=== PATIENT | female | born 1980 | race Asian ===

== ENCOUNTER 2016-06-19 11:37 | Outpatient (CLI) | payer OTHER ==
[2016-06-19 11:54] VITALS: BP 89/54
[2016-06-19 12:42] VITALS: BP 86/54
[2016-06-19 13:25] LABS: ADD MIUA? NO; BILIRUBIN NEGATIVE; BLOOD NEGATIVE; COLOR YELLOW ((YELLOW)); GLUCOSE (STRIP) NEGATIVE; KETONES NEGATIVE; LEUKOCYTES NEGATIVE; NITRITE NEGATIVE; PROTEIN (STRIP) NEGATIVE; SPECIFIC GRAVITY 1.006 (1.000-1.030); UCUL ADDED? NO; UROBILINOGEN 0.2 MG/DL (0.2-1.0)
== END 2016-06-19 14:23 | disposition home or self-care (01) ==
LOC: LDRP-OP → 2WEST 11:38 → LDRP-OP 10-14 17:03
PROVIDERS: Advanced Practice Midwife
DX: O36.8120 Decreased fetal movements, second trimester, not applicable or unspecified (principal); Z3A.27 27 weeks gestation of pregnancy
CPT/HCPCS: 59025; 81003; G0378

== ENCOUNTER 2016-08-26 07:41 | Inpatient (IN) | payer OTHER ==
[2016-08-26] VITALS (7 sets, daily range): BP systolic 103–114; BP diastolic 55–76
[~2016-08-26] VITALS: Ht 157.5 cm; Wt 63.5 kg
[2016-08-26 10:39] LABS: EOSINOPHIL (%) 0.3 % (0-5); HEMATOCRIT 32.5 % (36.0-46.0); IMMATURE GRANULOCYTE (%) 0.5 % (0.0-0.7); IMMATURE GRANULOCYTE COUNT 0.1 K/uL; INSTRUMENT ABS NEUTROPHIL CT 7.5 K/uL; LYMPHOCYTE COUNT 3.1 K/uL (1.0-2.8); MCV 88.8 FL (83-99); MEAN PLAT.VOLUME 10.3 uM^3 (9.5-12.4); MONOCYTE (%) 4.4 % (3-12); MONOCYTE COUNT 0.5 K/uL (0-0.8); NEUTROPHIL (%) 66.9 % (45-76); NEUTROPHIL COUNT 7.5 K/uL (1.8-6.4); PLATELET COUNT 274 K/uL (156-360); RBC DIS.WIDTH-CV 12.9 % (11.8-14.6); RBC DIS.WIDTH-SD 41.1 % (39-53); RED BLOOD COUNT 3.66 M/uL (3.80-5.20); WHITE BLOOD COUNT 11.2 K/uL (4.1-10.2)
[2016-08-26 18:01] LABS: EOSINOPHIL (%) 0 % (0-5); HEMATOCRIT 30.2 % (36.0-46.0); IMMATURE GRANULOCYTE (%) 0.6 % (0.0-0.7); IMMATURE GRANULOCYTE COUNT 0.1 K/uL; INSTRUMENT ABS NEUTROPHIL CT 18.7 K/uL; LYMPHOCYTE COUNT 1.3 K/uL (1.0-2.8); MCH 32.6 PG (29.0-34.0); MCHC 36.8 G/DL (30.0-36.0); MCV 88.6 FL (83-99); MEAN PLAT.VOLUME 10.2 uM^3 (9.5-12.4); MONOCYTE (%) 1.6 % (3-12); MONOCYTE COUNT 0.3 K/uL (0-0.8); NEUTROPHIL (%) 91.4 % (45-76); NEUTROPHIL COUNT 18.7 K/uL (1.8-6.4); PLATELET COUNT 255 K/uL (156-360); RBC DIS.WIDTH-SD 41.3 % (39-53); RED BLOOD COUNT 3.41 M/uL (3.80-5.20); WHITE BLOOD COUNT 20.5 K/uL (4.1-10.2)
[2016-08-27 03:01] VITALS: BP 101/63
[2016-08-27 07:40] LABS: EOSINOPHIL (%) 0.1 % (0-5); IMMATURE GRANULOCYTE (%) 0.4 % (0.0-0.7); IMMATURE GRANULOCYTE COUNT 0.1 K/uL; INSTRUMENT ABS NEUTROPHIL CT 12.9 K/uL; LYMPHOCYTE COUNT 4.1 K/uL (1.0-2.8); MCHC 36.8 G/DL (30.0-36.0); MCV 89.6 FL (83-99); MEAN PLAT.VOLUME 10.6 uM^3 (9.5-12.4); MONOCYTE (%) 5.4 % (3-12); NEUTROPHIL (%) 71.4 % (45-76); NEUTROPHIL COUNT 12.9 K/uL (1.8-6.4); PLATELET COUNT 254 K/uL (156-360); RBC DIS.WIDTH-CV 13.2 % (11.8-14.6); RBC DIS.WIDTH-SD 42.8 % (39-53); RED BLOOD COUNT 2.79 M/uL (3.80-5.20); WHITE BLOOD COUNT 18.1 K/uL (4.1-10.2)
[2016-08-27 07:52] VITALS: BP 86/54
[2016-08-27 11:13] VITALS: BP 97/58
[2016-08-27 14:54] VITALS: BP 102/57
[2016-08-27 19:00] VITALS: BP 99/60
[2016-08-27 23:00] VITALS: BP 95/54
[2016-08-28 03:18] VITALS: BP 99/62
[2016-08-28 07:10] VITALS: BP 102/59
[2016-08-28] MEDS ORDERED: BENADRYL25 MG PO (11:03)
[2016-08-28] MEDS ORDERED: LORATADINE10 M2 PO (11:04)
[2016-08-28] MEDS ORDERED: ENDOCET 5-3251 EACH PO (11:05)
[2016-08-28] MEDS ORDERED: CHROMAGEN,1 CAPSULE PO (11:05)
[2016-08-28] MEDS ORDERED: IBUPROFEN800 MG PO (11:05)
[2016-08-28] MEDS ORDERED: BREAST PUMP MC (11:13)
[2016-08-28 11:15] VITALS: BP 101/62
[2016-08-28 14:33] VITALS: BP 104/63
== END 2016-08-28 18:19 | disposition home or self-care (01) | DRG 765 ==
LOC: 2SOUTH → 2WEST 07:41 → 2SOUTH 11:47 → 2WEST 08-28 18:19
PROVIDERS: Obstetrics & Gynecology
PROC: 10D00Z1 Extraction of Products of Conception, Low, Open Approach (ICD-10-PCS; principal; 2016-08-26)
DX: O44.03 Complete placenta previa NOS or without hemorrhage, third trimester (principal); O44.43 Low lying placenta NOS or without hemorrhage, third trimester; O32.8XX0 Maternal care for other malpresentation of fetus, not applicable or unspecified; O32.2XX0 Maternal care for transverse and oblique lie, not applicable or unspecified; O99.02 Anemia complicating childbirth; D62 Acute posthemorrhagic anemia; Z3A.37 37 weeks gestation of pregnancy; Z37.0 Single live birth; O26.893 Other specified pregnancy related conditions, third trimester; R20.0 Anesthesia of skin
CPT/HCPCS: 36415; 80053; 82607; 84443; 85025; 85025 91; 86900; 86901; 88307; J0131; J0690; J1100; J2405; J2765; J7120

== ENCOUNTER 2016-10-01 17:54 | Emergency (ER) | payer OTHER ==
[~2016-10-01] VITALS: Ht 165.1 cm; Wt 59.7 kg
[~2016-10-01 17:54] MED LIST: BENADRYL25 MG PO; BREAST PUMP MC; CHROMAGEN,1 CAPSULE PO; ENDOCET 5-3251 EACH PO; IBUPROFEN800 MG PO; LORATADINE10 M2 PO
[2016-10-01 18:58] LABS: MCH 30.6 PG (29.0-34.0); MCHC 35.8 G/DL (30.0-36.0); MCV 85.3 FL (83-99); MEAN PLAT.VOLUME 9.4 uM^3 (9.5-12.4); PLATELET COUNT 251 K/uL (156-360); RBC DIS.WIDTH-CV 11.8 % (11.8-14.6); RBC DIS.WIDTH-SD 36.3 % (39-53); RED BLOOD COUNT 4.22 M/uL (3.80-5.20); WHITE BLOOD COUNT 7.2 K/uL (4.1-10.2)
[2016-10-01 19:10] LABS: CHLORIDE 104 mEq/L (99-109); POTASSIUM 3.8 mEq/L (3.7-5.4); SODIUM 138 mEq/L (136-147)
[2016-10-01 19:12] LABS: GLUCOSE 97 mg/dL (70-99)
[2016-10-01 19:13] LABS: ANION GAP 12 MEQ/L (2-14)
[2016-10-01 19:14] LABS: TOTAL BILIRUBIN 0.4 mg/dL (0.0-1.0)
[2016-10-01 19:15] LABS: ALKALINE PHOSPHATASE 84 IU/L (3-129)
[2016-10-01 19:16] LABS: GFR ESTIMATE (CALCULATED) > 59 mL/min/
[2016-10-01 19:17] LABS: UREA NITROGEN (BUN) 10 mg/dL (9-23)
[2016-10-01 19:19] LABS: LIPASE 38 U/L (1.0-51.0)
[2016-10-01 19:21] LABS: TROP-I INTERPRETATION NEGATIVE; TROPONIN-I < 0.01 ng/mL (0.0-0.30)
[2016-10-01 19:29] LABS: QUANTITATIVE HCG < 4.0 MIU/ML
[2016-10-01 20:11] LABS: ADD MIUA? YES; BILIRUBIN NEGATIVE; BLOOD MODERATE; COLOR YELLOW ((YELLOW)); GLUCOSE (STRIP) NEGATIVE; KETONES NEGATIVE; LEUKOCYTES NEGATIVE; NITRITE NEGATIVE; PROTEIN (STRIP) NEGATIVE; SPECIFIC GRAVITY 1.012 (1.000-1.030); UROBILINOGEN 0.2 MG/DL (0.2-1.0)
[2016-10-01 20:17] LABS: BACTERIA RARE /HPF; EPITHELIAL CELLS RARE /HPF; MUCUS TRACE /LPF; RED BLOOD CELLS 0-5 /HPF (0-5); WHITE BLOOD CELLS 0-5 /HPF (0-5)
[2016-10-01] MEDS ORDERED: ZOFRAN ODT4 MG PO (21:06)
[2016-10-01] MEDS ORDERED: ULTRAM50 MG PO (21:06)
[2016-10-01 21:21] VITALS: BP 102/81
== END 2016-10-01 21:24 | disposition home or self-care (01) ==
LOC: EME 17:54
PROVIDERS: Nurse Practitioner Family
DX: K80.20 Calculus of gallbladder without cholecystitis without obstruction (principal); R53.81 Other malaise; Z98.890 Other specified postprocedural states
CPT/HCPCS: 71020; 76705; 80053; 81003; 83690; 84484; 84702; 85027; 93005; 99281; 99285; J7030

== ENCOUNTER → 2016-10-07 | Outpatient (CLI) | payer OTHER ==
[~2016-10-07] MED LIST changes: +ULTRAM50 MG PO; +ZOFRAN ODT4 MG PO
== END | disposition home or self-care (01) ==
LOC: LAC 10:06
DX: O92.13 Cracked nipple associated with lactation (principal); O92.29 Other disorders of breast associated with pregnancy and the puerperium; O92.79 Other disorders of lactation
CPT/HCPCS: G0463

== ENCOUNTER 2016-11-26 09:55 | Emergency (ER) | payer OTHER ==
[~2016-11-26] VITALS: Ht 160 cm; Wt 59.4 kg
[2016-11-26 11:37] LABS: HEMATOCRIT 36.8 % (36.0-46.0); MCH 28.3 PG (29.0-34.0); MCHC 35.1 G/DL (30.0-36.0); MCV 80.7 FL (83-99); MEAN PLAT.VOLUME 9.7 uM^3 (9.5-12.4); PLATELET COUNT 402 K/uL (156-360); RBC DIS.WIDTH-CV 12.1 % (11.8-14.6); RBC DIS.WIDTH-SD 35.3 % (39-53); RED BLOOD COUNT 4.56 M/uL (3.80-5.20); WHITE BLOOD COUNT 15.2 K/uL (4.1-10.2)
[2016-11-26 11:47] LABS: CHLORIDE 109 mEq/L (99-109); POTASSIUM 4.2 mEq/L (3.7-5.4); SODIUM 139 mEq/L (136-147)
[2016-11-26 11:49] LABS: GLUCOSE 100 mg/dL (70-99)
[2016-11-26 11:50] LABS: ANION GAP 7 MEQ/L (2-14)
[2016-11-26 11:53] LABS: GFR ESTIMATE (CALCULATED) > 59 mL/min/
[2016-11-26 11:54] LABS: UREA NITROGEN (BUN) 7 mg/dL (9-23)
[2016-11-26 12:01] LABS: QUANTITATIVE HCG < 4.0 MIU/ML
[2016-11-26] MEDS ORDERED: ZOFRAN ODT4 MG PO (12:21)
[2016-11-26] MEDS ORDERED: FIORICET 50-301 EACH PO (12:21)
[2016-11-26 12:34] VITALS: BP 104/61
== END 2016-11-26 12:35 | disposition home or self-care (01) ==
LOC: EME 09:55
PROVIDERS: Nurse Practitioner Family
DX: G43.909 Migraine, unspecified, not intractable, without status migrainosus (principal); M54.2 Cervicalgia
CPT/HCPCS: 80048; 84702; 85027; 99281; 99283; J1885

== ENCOUNTER 2016-11-28 11:32 | Emergency (ER) | payer OTHER ==
[~2016-11-28] VITALS: Ht 160 cm; Wt 59.9 kg
[~2016-11-28 11:32] MED LIST changes: +FIORICET 50-301 EACH PO
[2016-11-28 16:06] VITALS: BP 116/55
== END 2016-11-28 16:14 | disposition home or self-care (01) ==
LOC: EME 11:32
DX: G43.909 Migraine, unspecified, not intractable, without status migrainosus (principal)
CPT/HCPCS: 99281; 99285; J1200; J1885; J2765; J7030

== ENCOUNTER 2016-11-30 01:16 | Inpatient (IN) | payer OTHER ==
[~2016-11-30] VITALS: Ht 160 cm; Wt 59.9 kg
[2016-11-30 03:24] LABS: HEMATOCRIT 32.5 % (36.0-46.0); MCH 28.6 PG (29.0-34.0); MCHC 35.7 G/DL (30.0-36.0); MCV 80.2 FL (83-99); MEAN PLAT.VOLUME 9.7 uM^3 (9.5-12.4); PLATELET COUNT 359 K/uL (156-360); RBC DIS.WIDTH-CV 12.4 % (11.8-14.6); RBC DIS.WIDTH-SD 35.7 % (39-53); RED BLOOD COUNT 4.05 M/uL (3.80-5.20); WHITE BLOOD COUNT 11.9 K/uL (4.1-10.2)
[2016-11-30 03:39] LABS: CHLORIDE 108 mEq/L (99-109); SODIUM 140 mEq/L (136-147)
[2016-11-30 03:40] LABS: GLUCOSE 109 mg/dL (70-99)
[2016-11-30 03:42] LABS: ANION GAP 12 MEQ/L (2-14)
[2016-11-30 03:44] LABS: GFR ESTIMATE (CALCULATED) > 59 mL/min/
[2016-11-30 03:45] LABS: UREA NITROGEN (BUN) 5 mg/dL (9-23)
[2016-11-30 03:53] LABS: QUANTITATIVE HCG < 4.0 MIU/ML
[2016-11-30 07:08] LABS: ERTH.SED.RATE 30 MM/HR (0-20)
[2016-11-30 08:08] VITALS: BP 103/62
[2016-11-30] MEDS ORDERED: FIORICET 50-301 EACH PO (11:48)
[2016-11-30] MEDS ORDERED: ZOFRAN4 MG PO (11:48)
[2016-11-30] MEDS ORDERED: VITAMIN B12 100MCG PO (11:49)
[2016-11-30] MEDS ORDERED: MOTRIN400 MG PO (11:49)
[2016-11-30 12:13] VITALS: BP 109/69
[2016-11-30 16:08] VITALS: BP 112/64
[2016-11-30 20:00] VITALS: BP 100/56
[2016-11-30 20:51] LABS: APPEARANCE CLEAR/COLORLESS; WHITE CELL RAW COUNT 3
[2016-11-30 20:52] LABS: CSF EOSINOPHILS ND % (0-25); MONONUCLEAR WBC'S ND % (50-90); POLYNUCLEAR WBC'S ND % (0-3); RED CELL AREA COUNTED 18; RED CELL COUNT 0 /MM^3 (0-1); RED CELL DILUTION 1; WBC AREA COUNTED 18; WBC DILUTION 1; WHITE CELL COUNT 2 /MM^3 (0-5)
[2016-12-01 04:00] VITALS: BP 106/62
[2016-12-01 05:55] LABS: EOSINOPHIL (%) 0.8 % (0-5); EOSINOPHIL COUNT 0.1 K/uL (0-0.3); HEMATOCRIT 32.8 % (36.0-46.0); IMMATURE GRANULOCYTE (%) 0.3 % (0.0-0.7); INSTRUMENT ABS NEUTROPHIL CT 6.4 K/uL; LYMPHOCYTE COUNT 5.7 K/uL (1.0-2.8); MCH 28.2 PG (29.0-34.0); MCHC 34.5 G/DL (30.0-36.0); MCV 81.8 FL (83-99); MEAN PLAT.VOLUME 10.1 uM^3 (9.5-12.4); MONOCYTE (%) 6.8 % (3-12); MONOCYTE COUNT 0.9 K/uL (0-0.8); NEUTROPHIL (%) 48.9 % (45-76); NEUTROPHIL COUNT 6.4 K/uL (1.8-6.4); PLATELET COUNT 370 K/uL (156-360); RBC DIS.WIDTH-CV 12.6 % (11.8-14.6); RBC DIS.WIDTH-SD 37.1 % (39-53); RED BLOOD COUNT 4.01 M/uL (3.80-5.20); WHITE BLOOD COUNT 13.2 K/uL (4.1-10.2)
[2016-12-01 06:25] LABS: ANION GAP 8 MEQ/L (2-14); CHLORIDE 107 MEQ/L (99-109); GFR ESTIMATE (CALCULATED) > 59 mL/min/; GLUCOSE 84 mg/dL (70-99); POTASSIUM 3.9 MEQ/L (3.7-5.4); SAMPLE HEMOLYSIS CHECK 0; SAMPLE ICTERIC CHECK 0; SAMPLE LIPEMIA CHECK 0; SODIUM 139 MEQ/L (136-147); UREA NITROGEN (BUN) 18 mg/dL (9-23)
[2016-12-01 08:45] VITALS: BP 93/63
[2016-12-01 09:22] LABS: IRON 116 MCG/DL (35-150)
[2016-12-01 09:36] LABS: FERRITIN 28 NG/ML (10-291)
[2016-12-01 11:52] VITALS: BP 102/73
[2016-12-01 16:12] VITALS: BP 103/67
[2016-12-01 19:10] VITALS: BP 94/67
[2016-12-02 00:19] VITALS: BP 106/71
[2016-12-02 03:45] VITALS: BP 107/65
[2016-12-02 05:49] LABS: EOSINOPHIL (%) 1.9 % (0-5); EOSINOPHIL COUNT 0.2 K/uL (0-0.3); HEMATOCRIT 32.8 % (36.0-46.0); IMMATURE GRANULOCYTE (%) 0.3 % (0.0-0.7); INSTRUMENT ABS NEUTROPHIL CT 5.9 K/uL; LYMPHOCYTE COUNT 4.7 K/uL (1.0-2.8); MCH 28.4 PG (29.0-34.0); MCHC 35.1 G/DL (30.0-36.0); MEAN PLAT.VOLUME 9.5 uM^3 (9.5-12.4); MONOCYTE (%) 6.5 % (3-12); MONOCYTE COUNT 0.8 K/uL (0-0.8); NEUTROPHIL (%) 50.8 % (45-76); NEUTROPHIL COUNT 5.9 K/uL (1.8-6.4); PLATELET COUNT 360 K/uL (156-360); RBC DIS.WIDTH-CV 12.4 % (11.8-14.6); RBC DIS.WIDTH-SD 36.1 % (39-53); RED BLOOD COUNT 4.05 M/uL (3.80-5.20); WHITE BLOOD COUNT 11.6 K/uL (4.1-10.2)
[2016-12-02 06:20] LABS: ANION GAP 8 MEQ/L (2-14); CHLORIDE 107 MEQ/L (99-109); GFR ESTIMATE (CALCULATED) > 59 mL/min/; GLUCOSE 82 mg/dL (70-99); POTASSIUM 4.1 MEQ/L (3.7-5.4); SAMPLE HEMOLYSIS CHECK 0; SAMPLE ICTERIC CHECK 0; SAMPLE LIPEMIA CHECK 0; SODIUM 139 MEQ/L (136-147); UREA NITROGEN (BUN) 14 mg/dL (9-23)
[2016-12-02 09:27] VITALS: BP 108/78
[2016-12-02 11:30] VITALS: BP 107/69
[2016-12-02] MEDS ORDERED: TOPIRAMATE25 MG PO (15:03)
[2016-12-02] MEDS ORDERED: MEDROL DOSEPAK4 MG PO (15:04)
[2016-12-02] MEDS ORDERED: ZOFRAN4 MG PO (15:04)
[2016-12-02] MEDS ORDERED: TORADOL10 MG PO (15:23)
[2016-12-02] MEDS ORDERED: IMITREX6 MG/0.5 M SC (15:24)
[2016-12-02] MEDS ORDERED: TRAZODONE HCL50 MG PO (15:25)
[2016-12-02 15:43] VITALS: BP 130/91
[2016-12-04 00:58] LABS: Albumin, Serum 3.9 g/dL (3.7-5.1); IgG Index, CSF 0.29 index (<0.66); Synthesis Rate IgG, CSF -13.3 mg/24 h (-9.9-3.3)
== END 2016-12-02 17:24 | disposition home or self-care (01) | DRG 103 ==
LOC: EME 01:16 → EDOF 05:46 → 5WEST 05:46 → EDOF 05:46 → ENRESERV 05:46 → 5WEST 07:53 → CANRESERV 12-01 12:07 → ENRESERV 12-01 12:07 → 5WEST 12-02 17:24
PROVIDERS: Emergency Medicine; Internal Medicine
PROC: 009U3ZX Drainage of Spinal Canal, Percutaneous Approach, Diagnostic (ICD-10-PCS; principal; 2016-11-30)
DX: G43.909 Migraine, unspecified, not intractable, without status migrainosus (principal); G35 Multiple sclerosis; D72.829 Elevated white blood cell count, unspecified; D64.9 Anemia, unspecified; G47.00 Insomnia, unspecified
CPT/HCPCS: 70450; 70544; 70549; 80048; 81003; 82728; 82945; 83540; 83873 90; 83916 90; 84157; 84466; 84702; 85025; 85027; 85651; 86617 90; 86618 90; 87070; 87205; 87529 90; 87899; 89051; 99281; 99285; G0378; J0780; J1100; J1200; J1885; J2765; J3030; J7030; J7512